=== PATIENT | female | born 1935 | race Caucasian/White ===

== ENCOUNTER 2021-06-29 08:39 | Outpatient (CLI) | payer MEDICARE | END 2021-06-29 23:59 | disposition home or self-care (01) | LOC: VAS 08:39 | PROVIDERS: ATTEND Radiology Vascular & Interventional Radiology | DX: I70.203 Unspecified atherosclerosis of native arteries of extremities, bilateral legs (principal); Z95.820 Peripheral vascular angioplasty status with implants and grafts | CPT/HCPCS: 93922; 93925 ==